=== PATIENT | female | born 1950 | race Caucasian/White ===

== ENCOUNTER 2019-07-19 10:49 | Inpatient (IN) | payer MEDICARE ==
[~2019-07-19] VITALS: Ht 157.5 cm; Wt 43.1 kg
[2019-07-19] MEDS ORDERED: TRAZODONE HCL150 MG PO (11:02)
[2019-07-19] MEDS ORDERED: SPIRIVA18 MCG INH (11:03)
[2019-07-19] MEDS ORDERED: ALBUTEROL SULF8.5 GM (11:03)
[2019-07-19 11:14] LABS: BASOPHILS 0.6 % (0-2); EOSINOPHILS 5.5 % (0-7); HEMATOCRIT 49.1 % (36.0-48.0); HEMOGLOBIN 15.9 g/dL (12-16); IMMATURE GRANULOCYTES 0.2 % (0-5); LYMPHOCYTES 14.6 % (15-50); MCH 31.3 pg (26.0-34.0); MCHC 32.4 g/dL (31.0-37.0); MCV 96.7 fL (80.0-100.0); MEAN PLATELET VOLUME 9.4 fL (7.4-10.4); MONOCYTES 8.1 % (2-11); PLATELET COUNT 250 10x3/uL (130-400); RBC 5.08 10x6/uL (4.00-5.40); RDW 13.4 % (11.5-14.5); WBC 10.1 10x3/uL (4.8-10.8)
[2019-07-19 11:30] LABS: CALC OSMOLALITY 265 mosm/kg (275-300); CALCIUM 9.1 mg/dL (8.5-10.1); CARBON DIOXIDE 29.6 mmol/L (21.0-32.0); CHLORIDE - SERUM 95 mmol/L (98-107); CREATININE - SERUM 0.7 mg/dL (0.6-1.3); GLUCOSE 101 mg/dL (74-106); SODIUM 133 mmol/L (136-145); UREA NITROGEN 12 mg/dL (7-18); eGFR NON AFRICAN AMERICAN 88 mL/min (90-120)
--- NOTE | 2019-07-19 11:39 | NUR ---
ANTERIOR CHEST TUBE PLACED BY Oswaldo KULKARNI, TUBE TO HEIMLICH VALVE. PUNCTURE SITE COVERED WITH TEGADERM, VALVE TAPED TO CHEST.
[2019-07-19 11:47] LABS: ALBUMIN 4.3 g/dL (3.4-5.0); ALKALINE PHOSPHATASE 104 U/L (30-120); ALT (SGPT) 35 U/L (10-68); BILIRUBIN - TOTAL 0.59 mg/dL (0.2-1.3); CKMB 2.3 U/L (0.0-3.6); CREATINE KINASE 43 UL (21-215); PROTEIN - SERUM 8.5 g/dL (6.4-8.2)
[2019-07-19 11:48] LABS: TROPONIN-I < 0.017 ng/mL (0.000-0.060)
[2019-07-19 15:39] VITALS: BP 123/64; BMI 17.4
--- NOTE | 2019-07-19 16:06 | HP ---
PATIENT: SHANTI SUGGS MEDICAL RECORD: [id number] ACCOUNT: [id number] LOCATION:[facility] [id number] : 49 ADMISSION DATE: 07/19/19 PCP: MARYJO ROMANO HISTORY AND PHYSICAL EXAMINATION REASON FOR ADMISSION: Chest pain and shortness of breath. HISTORY OF PRESENT ILLNESS: The patient is a 69-year-old female [place] [facility] [place] She had seen Maryjo Romano, our nurse practitioner a week ago for a dry repetitive cough. Chest x-ray and at that time showed bullous emphysema, otherwise unremarkable. She was placed on a Medrol Dosepak and Z-JUSTIN and expectorants. Over the weekend, she did not improve and she called nurse Romano yesterday stating that she was still having some cough and a little bit more short of breath. A CT scan was ordered outpatient this morning, revealing a large left pneumothorax and bullous emphysema and a left anterior rib fracture of indeterminate age. She denied any recent fall or past history of rib fractures. She is now admitted for chest tube placement for the workup. She denies weight loss. PAST MEDICAL HISTORY: First degree AV block, bullous emphysema on updrafts, history of alcohol abuse remotely, hyperlipidemia, insomnia, seasonal affective disorder, nicotine use. PAST SURGICAL HISTORY: TAHBSO in her 20s. FAMILY HISTORY: Mother had ovarian cancer. HOME MEDICATIONS: Pulmicort updraft q.12 hours, DuoNeb updrafts q.6 hours p.r.n., trazodone 50 mg 1 at night, montelukast 10 mg with evening meal, Tessalon 200 mg t.i.d., Spiriva Respimat 2 puffs daily, Anoro Ellipta 1 puff daily. ALLERGIES: CODEINE AND IBUPROFEN. REVIEW OF SYSTEMS: GENERAL: No weight loss, fever or fatigue. HEENT: No recent visual change, sinus congestion, or sore throat. RESPIRATORY: Shortness of breath, more severe the last 2 days with repetitive cough, nonproductive and she felt a pop in her back she says a day or two ago with cough. Denies emphysema. Denies history of pneumonia, is currently a smoker, down to 5 cigarettes a day, previously was pack a day for many years. CARDIAC: No exertional chest pain, claudication, or edema. She denies previous history of heart disease, although past medical history shows evidence of CAD? Denies claudication. GASTROINTESTINAL: No nausea, vomiting, change in stools, blood per rectum, gallbladder disease or liver disease. Denies history of ulcers. GYNECOLOGIC: No vaginal bleeding. GENITOURINARY: No incontinence or dysuria. MUSCULOSKELETAL: Having pain in her left lateral chest wall up into her left scapula. Denies arthritis history. INTEGUMENTARY: No rash or itching. PSYCHIATRIC: Denies depress mood. PHYSICAL EXAMINATION: HISTORY AND PHYSICAL [id number] IFENAYISHANTI GENERAL: Thin, 69-year-old female at this time, in no acute distress with Heimlich valve in place in the left chest. Thin, alert female. VITAL SIGNS: Her temperature is 98.4, blood pressure 147/79, sat of 92% on room air, respirations are 20. She is afebrile. HEENT: Eyes are clear. Oropharynx unremarkable. NECK: Supple. LUNGS: Slightly decreased breath sounds in the left upper apex, distant breath sounds bilaterally. No rales or wheezes. HEART: Regular rate without murmur. BREASTS: Symmetrical. ABDOMEN: Soft, nontender. EXTREMITIES: Showed no CC&E. PELVIC: Deferred. NEUROLOGIC: Oriented to person, place, and time. Cranial nerves intact. Gait normal. LABORATORY DATA: Shows a white count of 10,000 with an H&H of 15.9 and 49.1. Chemistry: Sodium is 133, potassium is 4.0, BUN is 12, creatinine is 0.7. Liver functions are normal. UA is pending. DIAGNOSTIC DATA: CT chest did as outpatient did show a large left pneumothorax and left anterior fractured rib and small left pleural effusion and atheromatous calcification of the aorta. ASSESSMENT: 1. Spontaneous left pneumothorax, moderate post-Heimlich valve placement. 2. Rib fracture, etiology unknown. No history of trauma. 3. Bullous emphysema. 4. History of seasonal affective disorder. 5. History of nicotine abuse, postmenopausal, questionable history of coronary artery disease. PLAN: Will be placed in surgical floor telemetry, supplemental O2. Continue home medications. Surgery has been consulted for chest tube management. Further workup pending clinical course. TRANSINT:[id number] Voice Confirmation ID: [id number] DOCUMENT ID: [id number] MAYTE HDZ MD at 1606 CC: [id number] DICTATION DATE: 07/19/19 1326 OVEN HEATER: 07/19/19 1430 ADM IN [place] [id number] [place] [id number]
--- NOTE | 2019-07-19 17:06 | NUR ---
WENT TO ASSESS PT AND SHE DENIES SUICIDE. PT STATED SHE DID NOT UNDERSTAND THE SUICIDE QUESTIONS WHEN ASKED PRIOR. SUICIDE SCREEN WAS REDONE AND PT SHOWS NO RISK FOR SUICIDE.
[2019-07-19 17:50] VITALS: BP 100/47
[2019-07-19 20:00] VITALS: BP 95/49
[2019-07-20] VITALS: BP 110/54
[2019-07-20 04:00] VITALS: BP 92/50
[2019-07-20 04:34] LABS: BASOPHILS 0.2 % (0-2); EOSINOPHILS 1.5 % (0-7); IMMATURE GRANULOCYTES 0.4 % (0-5); LYMPHOCYTES 9.3 % (15-50); MCH 30.7 pg (26.0-34.0); MCHC 32.1 g/dL (31.0-37.0); MCV 95.7 fL (80.0-100.0); MEAN PLATELET VOLUME 9.5 fL (7.4-10.4); MONOCYTES 5.6 % (2-11); RDW 13.4 % (11.5-14.5); WBC 9.7 10x3/uL (4.8-10.8)
[2019-07-20 04:52] LABS: HEMATOCRIT 37.4 % (36.0-48.0); PLATELET COUNT 191 10x3/uL (130-400); RBC 3.91 10x6/uL (4.00-5.40)
[2019-07-20 05:07] LABS: ALKALINE PHOSPHATASE 72 U/L (30-120); BILIRUBIN - TOTAL 0.41 mg/dL (0.2-1.3); CALC OSMOLALITY 271 mosm/kg (275-300); CALCIUM 7.8 mg/dL (8.5-10.1); CARBON DIOXIDE 31.3 mmol/L (21.0-32.0); CHLORIDE - SERUM 102 mmol/L (98-107); CREATININE - SERUM 0.7 mg/dL (0.6-1.3); GLUCOSE 112 mg/dL (74-106); POTASSIUM - SERUM 4.3 mmol/L (3.5-5.1); SODIUM 135 mmol/L (136-145); UREA NITROGEN 14 mg/dL (7-18); eGFR NON AFRICAN AMERICAN 88 mL/min (90-120)
[2019-07-20 05:21] LABS: ALBUMIN 2.8 g/dL (3.4-5.0); ALT (SGPT) 20 U/L (10-68); PROTEIN - SERUM 5.9 g/dL (6.4-8.2)
--- NOTE | 2019-07-20 07:56 | NUR ---
PT RESTING IN BED. RESP EVEN AND UNLABORED. O2 @ 2L NC IN PLACE. CHEST TUBE TO LEFT CHEST INTACT. REPORTS PAIN 3/10 AT THIS TIME. SALINE LOC TO RIGHT AC INTACT. SITE WITHOUT REDNESS OR EDEMA. DENIES FURTHER NEEDS AT THIS TIME. CL WITHIN REACH. ENCOURAGED TO CALL WITH NEEDS. CONTINUE POC
[2019-07-20 07:59] VITALS: BP 90/47
[2019-07-20 12:02] VITALS: BP 99/50
[2019-07-20 12:56] VITALS: Ht 157.5 cm; Wt 43.1 kg
[2019-07-20 15:39] VITALS: BP 98/52
--- NOTE | 2019-07-20 19:15 | NUR ---
SITTING UP IN BED WATCHING TV. ALERT AND ORIENTED X4. RESP NONLABORED. O2 @ 2L/NC. CHEST TUBE NOTED TO LT SUBCLAVIAN AREA. REPORTS PAIN IN CHEST AND BACK WHEN COUGHING THAT RATES 6. REPORTS PROD COUGH WITH CLEAR SPUTUM. SALINE LOCK NOTED TO RT AC. AMBULATORY. NO DISTRESS. SR ELEVATED X2. CL IN REACH.
[2019-07-20 20:00] VITALS: BP 100/56
[2019-07-21] VITALS: BP 94/48
--- NOTE | 2019-07-21 01:51 | NUR ---
HAS RESTED WELL TONIGHT. NO DISTRESS. CL IN REACH.
[2019-07-21 04:00] VITALS: BP 92/46
--- NOTE | 2019-07-21 07:25 | NUR ---
PT RESTING QUIETLY IN BED WATCHING TV. O2 @ 2L NC IN PLACE. DENIES PAIN AT THIS TIME. SALINE LOC TO RIGHT AC INTACT, WITHOUT REDNESS OR EDEMA. CHEST TUBE INTACT TO LEFT CHEST WALL. DENIES FURTHER NEEDS AT THIS TIME. CL WITHIN REACH. ENCOURAGED TO CALL WITH NEEDS. CONTINUE POC
[2019-07-21 08:00] VITALS: BP 103/45
[2019-07-21 12:05] VITALS: BP 94/49
[2019-07-21 16:00] VITALS: BP 91/48
--- NOTE | 2019-07-21 17:51 | NUR ---
DR. APODACA PRESENT TO D/C CHEST TUBE TO LEFT CHEST. PT APRIL WELL. GUAZE DRESSING TAPED IN PLACE VIA DR. APODACA. PT DENIES PAIN OR NEED FOR PAIN MEDICATION AT THIS TIME.
[2019-07-21 19:43] VITALS: BP 96/50
--- NOTE | 2019-07-21 20:15 | NUR ---
DISCHARGE INSTRUCTIONS GIVEN AND PT SIGNED ACKNOWLEGEMENT. PERSCRIPTION FOR PAIN MEDICATION GIVEN...COPY IN CHART. REMOVED TELEMETRY. REMOVED IV TO RIGHT AC WITH CATHETER TIP INTACT.
--- NOTE | 2019-07-21 20:25 | NUR ---
PT ESCORTED TO ER ENTRANCE VIA WHEELCHAIR BY TECHNICAL DATA ANALYST TO AWAITING FAMILY MEMBER N CAR. TOLD TO CALL IF SHE HAS ANY CONCERNS OR QUESTIONS.
== END 2019-07-21 20:26 | disposition home or self-care (01) | DRG 200 ==
LOC: D.ER 10:49 → D.MS 12:07
PROVIDERS: Family Medicine; ADMIT Family Medicine; ATTEND Family Medicine
PROC: 0W9B30Z Drainage of Left Pleural Cavity with Drainage Device, Percutaneous Approach (ICD-10-PCS; principal; 2019-07-19)
DX: J93.83 Other pneumothorax (principal); S22.39XA Fracture of one rib, unspecified side, initial encounter for closed fracture; J43.9 Emphysema, unspecified; E78.5 Hyperlipidemia, unspecified; G47.00 Insomnia, unspecified; X58.XXXA Exposure to other specified factors, initial encounter; F17.200 Nicotine dependence, unspecified, uncomplicated

== ENCOUNTER → 2019-09-25 08:56 | Outpatient (CLI) | payer MEDICARE ==
[2019-07-20 12:56] VITALS: BMI 17.3
[~2019-09-25 08:56] MED LIST: ALBUTEROL SULF8.5 GM; SPIRIVA18 MCG INH; TRAZODONE HCL150 MG PO
== END | disposition home or self-care (01) ==
LOC: D.LAB 08:56
PROVIDERS: ATTEND Internal Medicine Pulmonary Disease
DX: Z11.59 Encounter for screening for other viral diseases (principal)

== ENCOUNTER → 2019-09-27 08:34 | Outpatient (CLI) | payer MEDICARE ==
[2019-07-20 12:56] VITALS: BMI 17.3
== END | disposition home or self-care (01) ==
LOC: D.RT 08:34
PROVIDERS: ATTEND Internal Medicine Pulmonary Disease
DX: Z87.09 Personal history of other diseases of the respiratory system (principal); R13.10 Dysphagia, unspecified

== ENCOUNTER → 2019-10-09 11:38 | Outpatient (CLI) | payer MEDICARE ==
[~2019-10-09] VITALS: Ht 157.5 cm; Wt 44.1 kg
[2019-10-09 12:02] VITALS: BP 86/37; Ht 157.5 cm; Wt 44.1 kg
== END | disposition home or self-care (01) ==
LOC: D.OPS 11:38
PROVIDERS: ATTEND Family Medicine
DX: M81.0 Age-related osteoporosis without current pathological fracture (principal)

== ENCOUNTER → 2020-09-10 11:53 | Outpatient (CLI) | payer MEDICARE ==
[2019-10-09 12:02] VITALS: BMI 17.7
== END | disposition home or self-care (01) ==
LOC: D.LAB 11:53
PROVIDERS: ATTEND Internal Medicine Pulmonary Disease
DX: Z11.52 Encounter for screening for COVID-19 (principal)

== ENCOUNTER → 2020-09-15 13:05 | Outpatient (CLI) | payer MEDICARE ==
[2019-10-09 12:02] VITALS: BMI 17.7
== END | disposition home or self-care (01) ==
LOC: D.RT 13:00
PROVIDERS: ATTEND Internal Medicine Pulmonary Disease
DX: J43.9 Emphysema, unspecified (principal); Z11.52 Encounter for screening for COVID-19